=== PATIENT | female | born 1950 | race Caucasian/White ===

== ENCOUNTER → 2020-04-05 12:40 | Outpatient (BNVA) | payer MEDICARE, OTHER, SELFPAY | PROVIDERS: Family Provider Nurse Practitioner Family; PCP Nurse Practitioner; Referring Provider Nurse Practitioner; Visit Provider Anesthesiology Pain Medicine | DX: G89.29 Other chronic pain (principal); M47.816 Spondylosis without myelopathy or radiculopathy, lumbar region; M51.36 Other intervertebral disc degeneration, lumbar region; M54.9 Dorsalgia, unspecified; G35 Multiple sclerosis; Z79.899 Other long term (current) drug therapy | CPT/HCPCS: 99204 ==

== ENCOUNTER → 2020-04-10 13:38 | Outpatient (BNVA) | payer MEDICARE, OTHER, SELFPAY | PROVIDERS: Family Provider Nurse Practitioner Family; PCP Nurse Practitioner; Visit Provider Anesthesiology Pain Medicine | DX: M47.816 Spondylosis without myelopathy or radiculopathy, lumbar region (principal); M54.9 Dorsalgia, unspecified | CPT/HCPCS: 64493; 64494; 64495; J3490 ==

== ENCOUNTER 2020-04-20 13:09 | Outpatient (CLI) | payer MEDICARE, OTHER, SELFPAY ==
--- NOTE | 2020-04-20 13:54 | XR_ITS ---
WS: [id number] LUMBAR SPINE FLEXION AND EXTENSION TECHNIQUE: 3 views of the lumbar spine: Lateral neutral, flexion, and extension views. CLINICAL INFORMATION: pain COMPARISON: None. FINDINGS: Osteopenia. Disc space narrowing worse at L2-3 with endplate degenerative changes. Grade 1 anterolist hesis L4 on L5 measuring 4.3 mm in neutral. This increases to 6.3 mm in flexion and decreases to 3.6 mm in extension. Moderate facet arthropathy L5-S1. Aortic calcification. XR/XR lumbar spine f/e only [id number] IMPRESSION: 1. Grade 1 anterolisthesis L4 on L5 with mild instability described above. 2. Disc space narrowing worse at L2-L3, L4-L5 and L5-S1. 3. Osteopenia.
== END 2020-04-20 13:10 | disposition home or self-care (01) ==
LOC: RADWPI 13:13
PROVIDERS: PCP Nurse Practitioner; Visit Provider Anesthesiology Pain Medicine
DX: M54.5 Low back pain (principal); M47.816 Spondylosis without myelopathy or radiculopathy, lumbar region
CPT/HCPCS: 72120

== ENCOUNTER → 2020-04-30 09:22 | Outpatient (BNVA) | payer MEDICARE, OTHER, SELFPAY | PROVIDERS: PCP Nurse Practitioner; Visit Provider Anesthesiology Pain Medicine | DX: M54.41 Lumbago with sciatica, right side (principal); M54.42 Lumbago with sciatica, left side; M51.36 Other intervertebral disc degeneration, lumbar region; M47.816 Spondylosis without myelopathy or radiculopathy, lumbar region; M54.9 Dorsalgia, unspecified; G35 Multiple sclerosis | CPT/HCPCS: 99213; 99214 ==

== ENCOUNTER 2022-07-04 17:41 | Emergency (ER) | payer MEDICARE, OTHER, SELFPAY ==
[2022-07-04 17:54] VITALS: BP 147/61; PULSE 64; RESP 18; TEMP 37.2; O2SAT 92; BMI 29.7
--- NOTE | 2022-07-04 17:58 | XRR_ITS ---
PROCEDURE INFORMATION: Exam: XR Right Ankle Exam date and time: 07/04/2022 6:18 PM Age: 72 years old Clinical indication: Pain; Ankle; Right; Additional info: Fall; Injury TECHNIQUE: Imaging protocol: Radiologic exam of the Right ankle. Views: 3 or more views. COMPARISON: No relevant prior studies available. FINDINGS: Bones/joints: Osseous structures and joint surfaces are intact. No fracture or malalignment. Soft tissues: Normal. XR/XR ankle RT min 3V* [id number] IMPRESSION: Normal right ankle
--- NOTE | 2022-07-04 20:02 | XRR_ITS ---
PROCEDURE INFORMATION: Exam: XR Right Tibia and Fibula Exam date and time: 07/04/2022 8:07 PM Age: 72 years old Clinical indication: Injury or trauma; Fall; Additional info: Fall injury TECHNIQUE: Imaging protocol: Radiologic exam of the Right tibia and fibula. Views: 2 views. COMPARISON: CR (LOW EXM, ) 07/04/2022 6:18 PM FINDINGS: Bones/joints: Medial knee joint surgical hardware. Soft tissues: Splint material seen about the lower extremity. XR/XR tibia fibula RT 2V [id number] IMPRESSION: 1. Negative for fracture or dislocation. 2. Splint material seen about the lower extremity. 3. Medial knee joint surgical hardware.
--- NOTE | 2022-07-04 20:03 | ED_ITS ---
HPI - Fall General: Chief Complaint: Fall Stated Complaint: Right leg injury, Fall Time Seen by Provider: 07/04/22 19:38 History of Present Illness: Patient is a 72-year-old female who comes to the ED with right leg injury. Patient says she slipped on some ice and fell. Denies any head trauma or loss of conscious. She is complaining of having pain in her right ankle and pain in the middle of her right lower leg just below her knee. She rates her pain currently a 10 out of 10. She is unable to bear weight due to pain. Associated symptoms-after fall: Denies abdominal pain, chest pain, headache(s), hematuria or neck pain Review of Systems Const: Denies: fever(s), chills or fatigue Eyes: Denies: change in vision or eye discomfort ENMT: Denies: throat pain, odynophagia, nasal discharge or nasal congestion Card: Denies: chest pain, palpitations, edema, swelling of feet/ankles, dyspnea on exertion or orthopnea Resp: Denies: dyspnea, productive cough or non-productive cough GI: Denies: abdominal pain, nausea, vomiting, diarrhea, constipation or hematochezia : Denies: flank pain, dysuria or hematuria Musc: Reports: extremity pain (Right ankle and mid vazquez pain); Denies: neck pain, back pain or extremity swelling Skin/Breast: Denies: rash or new lesions Neuro: Denies: headache(s), numbness in extremities or weakness in extremities COUNTS INCLUDE 234 BEDS AT THE [facility] ED PFSH: Surgical History (Updated 07/05/22 @ 08:32 by DAYNA Meadows) Status post laparoscopic appendectomy Status post laparoscopic cholecystectomy Family History Family/Other Cancer aunt breast Other Dementia Diabetes Heart disease Parkinson disease Stroke Denies family history of Anesthesia complication Bleeding disorder Social History Smoking and tobacco status: former smoker Quit status (tobacco): has quit using tobacco Year quit tobacco: 2003 Alcohol intake: never Lives independently: Yes History of recent travel: No Physical Exam Const: COMMON NORMALS: patient oriented x3 HENMT: COMMON NORMALS: normocephalic HEAD & SCALP: normocephalic MOUTH: Normal oral and palatal mucosa present THROAT: posterior oropharynx normal and uvula midline Neck/C-Spine: COMMON NORMALS: supple GENERAL: Yes normal visual inspection Resp: COMMON NORMALS: normal respiratory effort, No retractions, No use of accessory muscles and clear to auscultation bilaterally AUSCULTATION: clear to auscultation bilaterally Cardio: COMMON NORMALS: regular rate, regular rhythm, S1 normal heart sound present, S2 normal heart sound present, No gallops present (Cardio), No clicks present (Cardio), No murmurs present (Cardio) and Peripheral pulses 2+ throughout RATE: regular rate RHYTHM: regular rhythm HEART SOUNDS: S1 normal heart sound present and S2 normal heart sound present PERIPHERAL PULSES: Peripheral pulses 2+ throughout GI: COMMON NORMALS: Normal to inspection, nondistended, normoactive bowel sounds present, Soft to palpation, non-tender and no masses PALPATION: Yes S oft to palpation : COMMON NORMALS: Yes no CVA tenderness BLADDER/KIDNEY EXAM: Yes no CVA tenderness Back/Pelvis: COMMON NORMALS: no CVA tenderness Extremity: NARRATIVE EXTREMITY EXAM: Right leg?mid vazquez tenderness to palpation. Lateral malleolus tenderness to palpation as well. Limited range of motion of ankle due to pain. Neurovascular tact distally. No visible deformity seen. Neuro: COMMON NORMALS: patient oriented x3 GAIT: Yes Normal gait present Skin: GENERAL SKIN EXAM: dry skin Course Vital Signs: Vital signs: Vital Signs Temperature 99 F 07/04/22 17:54 Pulse Rate 84 07/04/22 20:57 Respiratory Rate 16 07/04/22 20:57 Blood Pressure 147/61 07/04/22 17:54 Pulse Oximetry 97 07/04/22 20:57 Oxygen Delivery Me thod 07/04/22 17:54 MDM - Fall Medical Decision Making Patient is a 72-year-old female who comes to the ED with right leg injury. Patient says she slipped on some ice and fell. Denies any head trauma or loss of conscious. She is complaining of having pain in her right ankle and pain in the middle of her right lower leg just below her knee. Vitals stable. Right leg?mid vazquez tenderness to palpation. Lateral malleolus tenderness to palpation as well. Limited range of motion of ankle due to pain. Neurovascular tact distally. No visible deformity seen. X-ray of tib-fib and right ankle show no acute fractures or findings. Patient diagnosed with right ankle sprain and was stable for discharge home. Patient told to follow-up with PCP in the next week for reevaluation. Return ED precautions given. Patient was discharged home with a prescription for couple hydrocodone to help with acute pain. Patient understood and agreed with plan. Lab Data Radiology Impressions Ankle X-Ray 07/04/22 17:58 IMPRESSION: Normal right ankle Tibia/Fibula X-Ray 07/04/22 20:02 IMPRESSION: 1. Negative for fracture or dislocation. 2. Splint material seen about the lower extremity. 3. Medial knee joint surgical hardware. Discharge Plan Discharge Patient Disposition: Home Clinical Impression: Right ankle sprain Qualifiers: Encounter type: initial encounter Involved ligament of ankle: unspecified ligament Qualified Code(s): S93.401A - Sprain of unspecified ligament of right ankle, initial encounter Condition: Stable Prescriptions: No Action metoprolol succinate 50 mg tablet extended release 24 hr 50 mg PO DAILY baclofen 10 mg tablet 10 mg PO TID clopidogrel [Plavix] 75 mg tablet 75 mg PO DAILY omeprazole 20 mg capsule,delayed release(DR/EC) 20 mg PO DAILY isosorbide mononitrate 120 mg tablet extended release 24 hr 120 mg PO DAILY simvastatin 40 mg tablet 40 mg PO DAILY aspirin 81 mg tablet,delayed release (DR/EC) 81 mg PO DAILY amlodipine 10 mg tablet 10 mg PO DAILY hydrochlorothiazide 25 mg tablet 25 mg PO DAILY cholecalciferol (vitamin D3) 125 mcg (5,000 unit) capsule 125 mcg PO DAILY ascorbic acid (vitamin C) 1,000 mg tablet 1,000 mg PO DAILY omega 4-lky-fds-fish oil [Fish Oil] 1,000 mg (120 mg-180 mg) capsule 1 cap PO DAILY vitamin B complex [B Complex-Vitamin B12] Tablet 1 tab PO DAILY Discharge Orders: Discharge ED (Routine); Ordered 07/04/22 Ordered By: Bo Davis Referrals: Aby Scott NP [Primary Care Provider] - Discharge Diet: Regular Discharge Activity: Limit activity as instructed and Use walker/crutches as instructed Patient Instructions: Ankle Sprain (ED), Opioid Safety Activity Restrictions/Additional Instructions: Follow-up with medical provider as directed in the next 5 to 7 days for reevaluation. Use crutches and limit weightbearing for the next couple days then advance weightbearing as tolerated rest, ice and elevate right ankle. Take medications as prescribed. Return to the ER or your medical provider if condition worsens. Please read and understand discharge instructions. Thank you for choosing [facility] for your healthcare needs today. Please realize this is an emergency room and that we are providing you with a medical screening exam and this may not be complete and all inclusive of all the testing and or work up that you may need to determine your ailment or severity of your illness. It is very important that you follow up as instructed or that you return to the Emergency Department should you have concerns or if your condition changes or worsens in any way. Coding Level of Care Code ED Medical Parasitologist for Laurie Fwd Exam Comprehensive
[2022-07-04] MEDS: HYDROcodone-acetaminophen 5-325 mg Tablet 1 TAB PO (20:24)
[2022-07-04 20:57] VITALS: PULSE 84; RESP 16; O2SAT 97
== END 2022-07-04 20:58 | disposition home or self-care (01) ==
PROVIDERS: Emergency Provider Physician Assistant; PCP Nurse Practitioner
DX: S93.401A Sprain of unspecified ligament of right ankle, initial encounter (principal); Z79.82 Long term (current) use of aspirin; Z79.02 Long term (current) use of antithrombotics/antiplatelets; Z87.891 Personal history of nicotine dependence; W00.0XXA Fall on same level due to ice and snow, initial encounter
CPT/HCPCS: 73590; 73610; 99283

== ENCOUNTER 2023-03-13 12:09 | Outpatient (CLI) | payer MEDICARE, OTHER, SELFPAY ==
--- NOTE | 2023-03-13 12:16 | XR_ITS ---
WS: [id number] Lumbar spine, 3 views, 03/13/2023 Clinical Data: acute low back pain Comparison: Lumbar spine, 04/20/2020 Findings: There is a posterior lumbar fusion at L4-L5 with bilateral pedicle screws and connecting rods. There is artificial disc at L4-L5. There is still 0.4 cm anterior subluxation of L4 and L5. There is degene rative disc narrowing at all levels from L2-L3 through L5-S1. There are osteoarthritic spurs of all the lumbar vertebral bodies L2-L4. There is a dextroscoliosis. The transverse processes and SI joints are not remarkable. There is a right hip arthroplasty. The abd ominal aorta shows calcification but no aneurysm. Impression: 1. Posterior lumbar fusion L4-L5. 2. Multilevel degenerative disc narrowing with osteoarthritic change. 3. Dextroscoliosis.
--- NOTE | 2023-03-13 12:16 | XR_ITS ---
WS: [id number] Sacrum and coccyx, 3 views, 03/13/2023 Clinical Data: acute low back pain Comparison: None. Findings: No fractures or dislocations are seen. The SI joints and pubic symphysis are unremarkable. No bone de struction or erosion is seen. There is a right hip arthroplasty. The posterior lumbar fusion at L5 is noted. There are small surgic al clips on the right side of the iliac wing extending into the right side of the true pelvis. Impression: Negative sacrum and coccyx.
== END 2023-03-13 12:10 | disposition home or self-care (01) ==
LOC: RAD 12:13
PROVIDERS: PCP Nurse Practitioner; Visit Provider Nurse Practitioner
DX: M54.42 Lumbago with sciatica, left side (principal); Z98.1 Arthrodesis status; M47.896 Other spondylosis, lumbar region
CPT/HCPCS: 72100; 72220

== ENCOUNTER → 2023-04-29 10:11 | Outpatient (BNVA) | payer MEDICARE, OTHER, SELFPAY | PROVIDERS: PCP Nurse Practitioner; Visit Provider Anesthesiology Pain Medicine | DX: M47.816 Spondylosis without myelopathy or radiculopathy, lumbar region (principal); M54.42 Lumbago with sciatica, left side; M54.16 Radiculopathy, lumbar region; Z98.1 Arthrodesis status; M51.36 Other intervertebral disc degeneration, lumbar region; M41.80 Other forms of scoliosis, site unspecified | CPT/HCPCS: 99205 ==

== ENCOUNTER 2023-06-29 08:45 | Outpatient (CLI) | payer MEDICARE, OTHER, SELFPAY ==
--- NOTE | 2023-06-29 08:45 | MR_ITS ---
WS: [id number] MRI LUMBAR SPINE WITH CONTRAST TECHNIQUE: Sagittal T1, T2 and STIR imaging. Axial T1 and T2 imaging. Post gadolinium imaging was obt ained. CLINICAL INFORMATION: lower back pain COMPARISON: None. FINDINGS: Mild lumbar curve. No acute compression. Slight anterolisthesis L4 on L5. Pedicle screw fixation L4-5 . Disc bulging L2-L3 and L3-L4. Chronic anterior wedging at T12. Shallow disc protrusions at T11-T12 and T12-L1. Moderate LEFT T11-12 foraminal narrowing with a small LEFT foraminal protrusion. L1-L2: Mild annular bulging. Spinal canal and foramen are patent. Mild facet arthropathy. L2-L3: Mild disc bulging with narrowing of the RIGHT subarticular recess. Mild facet arthropathy. Mil d to moderate RIGHT and mild LEFT foraminal narrowing. Mild central canal stenosis. Mild facet arthro cielo. L3-L4: Mild disc bulging with mild central canal stenosis. Impingement on the LEFT greater than RIGHT subarticular recess and traversing L4 nerve roots. Mild facet arthropathy. Moderate to severe LEFT f oraminal narrowing with LEFT foraminal protrusion. Additional RIGHT subarticular disc herniation with cranial extension posterior to the L3 vertebral body with narrowing of the RIGHT subarticular recess . L4-L5: Grade 1 anterolisthesis. Spinal canal and foramen are patent. L5-S1: Mild annular bulging. Moderate facet arthropathy. Spinal canal and foramen are patent. Small bilateral lateral renal cysts. Incidental Tarlov cyst in the sacrum. IMPRESSION: 1. Pedicle screw fixation L4-5 with interbody fusion graft. Spinal canal and foramen are patent at t he fusion levels. 2. Mild central canal stenosis L2-3 with narrowing of the RIGHT L2-3 subarticular recess and impinge ment on the traversing RIGHT L3 nerve root. RIGHT foraminal protrusion with mild to moderate RIGHT fo raminal narrowing. 3. Disc bulging L3-4 with impingement LEFT subarticular recess and traversing LEFT L4 nerve root. L EFT foraminal protrusion with moderate to severe LEFT foraminal narrowing. Mild central canal stenosi s at this level. 4. Small amount of herniated disc material posterior to the L3 vertebral body with slight narrowing of the RIGHT subarticular recess at L3-4. 5. Chronic anterior wedging T12. 6. Moderate LEFT T11-12 foraminal narrowing with LEFT foraminal protrusion.
[2023-06-29] MEDS: gadobenate dimeglumine 20 mL vial IV (11:50)
== END 2023-06-29 08:46 | disposition home or self-care (01) ==
PROVIDERS: PCP Family Medicine; Visit Provider Anesthesiology Pain Medicine
DX: M51.16 Intervertebral disc disorders with radiculopathy, lumbar region (principal); M48.061 Spinal stenosis, lumbar region without neurogenic claudication; M48.04 Spinal stenosis, thoracic region; M51.24 Other intervertebral disc displacement, thoracic region; M48.54XA Collapsed vertebra, not elsewhere classified, thoracic region, initial encounter for fracture; Z98.1 Arthrodesis status
CPT/HCPCS: 72158; A9577

== ENCOUNTER → 2023-07-06 09:45 | Outpatient (BNVA) | payer MEDICARE, OTHER, SELFPAY | PROVIDERS: PCP Family Medicine; Visit Provider Anesthesiology Pain Medicine | DX: M54.42 Lumbago with sciatica, left side (principal); M54.16 Radiculopathy, lumbar region; Z98.1 Arthrodesis status | CPT/HCPCS: 99215 ==

== ENCOUNTER → 2023-07-14 12:50 | Outpatient (BNVA) | payer MEDICARE, OTHER, SELFPAY | PROVIDERS: PCP Family Medicine; Visit Provider Anesthesiology Pain Medicine | DX: M54.16 Radiculopathy, lumbar region (principal); M54.42 Lumbago with sciatica, left side | CPT/HCPCS: 64483; 64484; J1100; J3490 ==

== ENCOUNTER → 2023-07-22 12:18 | Outpatient (BNVA) | payer MEDICARE, OTHER, SELFPAY | PROVIDERS: PCP Family Medicine; Visit Provider Emergency Medicine | DX: B34.9 Viral infection, unspecified (principal) | CPT/HCPCS: 71046; 87400; 87426 ==

== ENCOUNTER → 2023-07-24 12:04 | Outpatient (BNVA) | payer MEDICARE, OTHER, SELFPAY | PROVIDERS: PCP Family Medicine; Visit Provider Emergency Medicine | DX: J18.9 Pneumonia, unspecified organism (principal); J98.8 Other specified respiratory disorders; B97.89 Other viral agents as the cause of diseases classified elsewhere | CPT/HCPCS: 71046 ==